=== PATIENT | female | born 1985 | race Caucasian/White ===

== ENCOUNTER → 2019-06-11 | Outpatient (CLI) | payer OTHER, SELFPAY ==
[2015-03-13 05:22] VITALS: BMI 24.9
== END | disposition home or self-care (01) ==
PROVIDERS: Referring Provider Obstetrics & Gynecology; Visit Provider Obstetrics & Gynecology
DX: Z12.4 Encounter for screening for malignant neoplasm of cervix (principal)

== ENCOUNTER → 2022-07-30 | Outpatient (CLI) | payer OTHER, SELFPAY ==
[2022-08-08 09:24] LABS: HPV APTIMA, High Risk Negative (Negative)
== END | disposition home or self-care (01) ==
LOC: LABSPEC 14:33
PROVIDERS: Visit Provider Student in an Organized Health Care Education/Training Program
DX: Z12.4 Encounter for screening for malignant neoplasm of cervix (principal)
CPT/HCPCS: 87624; 88175; G0145

== ENCOUNTER 2024-03-02 14:00 | Outpatient (RCR) | payer OTHER, SELFPAY ==
--- NOTE | 2024-02-10 16:56 | HP.PTEVAL_ITS ---
Patient's Visit Information Visit Information Visit Information: MARTY WEEMS is a 38 year old F referred to Physical Therapy by SKYE MENON with a diagnosis of SCOLOSIS. Date of Evaluation: 02/10/24 Physical Therapist: Harry Vivas, PT, Cert MDT, OCS Visit Plan Frequency: 1-2x /Week Duration: 4 Weeks Plan: PT INTERVENTIONS DLS ,POSTURAL ,FUNCTIONAL STRENGTHENING ,FLEXABILITY THORACIC/LUMBAR ,AND PATIENT EDUCATION Subjective Subjective: This 38 y/o female presents to physical therapy with lumbar pain. Patient has had lumbar scoliosis since 14 y/o pain progressively worse .Patient has had [address] children[address] BEYER in [facility] for core strength. Patient gets muscle spasms on left continues dull ache, Aggravating factors twisting ,bending and lifting,extended sitting. Alleviating factors rest walk okay except flare up. Denies paresthesia/tingling , patient has occasional left buttuck. Coughing/sneezing straining-.Bowel /bladder -. Patient occasional has muscle relaxers. Patient sleeps okay but wakes up with pain. Patient has 37 degree curve lumbar -thoracic. Patient condition affects QOL and function. Patient goals to decrease pain with work. SOCIAL: VOCATION: VETENARY Pain Bilateral Back: Pain Intensity (Out of 10): 2 Pain Intensity Range: 9 Comment: LEFT >RIGHT Objective Objective: POSTURE: mild forward posture decrease lordosis mild lumbar -thoracic kyphosis left ~ 37degrees PALAPTION: unremarkable NEURO: denies paresthesia/tingling,reflexes L3-4,L4-5 ,L5-S 1 2/3 SYMMETRIES: asymmetries' BLE PROM: IR/ER WFL , FLEXABILITY: BLE hamstrings WNL MMT: quads/hams 4/5 ,hip flexion 4/5 ,ankle 4/5 LUMBAR ROM: flexion WFL ,extension min loss ,side glides min loss MUSCULAR ENDURANCE: poor unable maintain Special Tests L/S Slump test left side: Negative L/S Slump test right side: Negative L/S Left Straight Leg Raise: Negative L/S Right Straight Leg Raise: Negative Lumbar Standing: Flexion - Mechanical Response: No effect Lumbar Standing: Flexion - Symptoms During Testing: No effect Lumbar Standing: Flexion - Symptoms After Testing: No effect Lumbar Standing: Extension - Mechanical Response: No effect Lumbar Standing: Extension - Symptoms During Testing: Increases Lumbar Standing: Extension - Symptoms After Testing: No worse Lumbar Standing: Right Side Glides - Mechanical Response: No effect Lumbar Standing: Right Side [place] - Symptoms During Testing: No effect Lumbar Standing: Right Side [place] - Symptoms After Testing: No effect Lumbar Standing: Left Side [place] - Mechanical Response: No effect Lumbar Standing: Left Side [place] - Symptoms During Testing: No effect Lumbar Standing: Left Side [place] - Symptoms After Testing: No effect Lumbar Lying: Flexion - Mechanical Response: No effect Lumbar Lying: Flexion - Symptoms During Testing: No effect Lumbar Lying: Flexion - Symptoms After Testing: No effect Lumbar Lying: Extension - Mechanical Response: No effect Lumbar Lying: Extension - Symptoms During Testing: Increases Lumbar Lying: Extension - Symptoms After Testing: No worse Balance/Special Test Scores Oswestry Low Back Score: 17 Goals Goal 1:: Patient to be I with HEP for back Goal Time Frame: 4-6 Weeks Goal 2:: Patient to improve lumbar ROM for function of recovery for job demand Goal Time Frame: 4-6 Weeks Goal 3:: Patient to improve muscular endurance to maintain neutral spine with functional activities Goal Time Frame: 4-6 Weeks Goal 4:: Patient to improve back oswestry score by 5 points to improve function . Goal Time Frame: 4-6 Weeks Rehabilitation Potential Physical Therapy Diagnosis: Patient has scoliosis and weak core muscular endurance pain with positioning and motion testing along with job demands thus benefit from skilled PT Rehabilitation Potential: Good Anticipated Interventions Patient/Client Instruction: Educate patient on: Condition and Plan of Care For the Purpose of:: To decrease pain, To increase ROM, To improve muscle performance and motor function, To improve ability to perform ADL's, To increase tolerance to activity/condition/position, To improve ability of physical actions for home/community/work/leisure, To improve health of tissue, To decrease soft tissue restriction, To increase flexibility/ROM, To improve endurance and To improve tolerance to ADL's Therapeutic Exercise to Include: Strength training, Endurance training, Postural training and Dynamic Lumbar Stabilization For the Purpose of:: To decrease pain, To improve muscle performance and motor function, To increase tolerance to activity/condition/position, To improve ability of physical actions for home/community/work/leisure, To improve health of tissue, To decrease soft tissue restriction, To increase flexibility/ROM and To improve endurance Text: Thank you for the opportunity to evaluate your patient. For Medicare and Medicare HMO plans, please review the plan of care and approve it. It will need to be FAXED BACK to us at [phone] for Medicare purposes. For Medicare only, by signing this I certify the plan of care. Please let me know if there are questions or concerns regarding this plan of care. Physician Signature: Date:
== END 2024-03-02 19:00 | disposition home or self-care (01) ==
LOC: PT 14:00
PROVIDERS: PCP Family Medicine
DX: M41.9 Scoliosis, unspecified (principal)
CPT/HCPCS: 97110; 97161